=== PATIENT | female | born 1965 ===

== ENCOUNTER 2018-05-03 13:16 | Emergency (ER) | payer OTHER ==
[~2018-05-03] VITALS: Ht 165.1 cm; Wt 84.8 kg
[2018-05-03] MEDS ORDERED: CELEXA10 MG PO (13:25)
[2018-05-03] MEDS ORDERED: SEROQUEL25 MG PO (13:26)
[2018-05-03] MEDS ORDERED: WELLBUTRIN SR100 MG PO (13:26)
== END 2018-05-03 16:54 | disposition home or self-care (01) ==
LOC: ER 13:16
DX: G89.11 Acute pain due to trauma (principal); M54.89 Other dorsalgia; M54.6 Pain in thoracic spine